=== PATIENT | female | born 1990 | race Caucasian/White ===

== ENCOUNTER 2018-05-18 09:32 | Outpatient (CLI) | payer OTHER ==
--- NOTE | 2018-05-18 11:23 | ULT ---
PELVIC ULTRASOUND: History: female. Evaluate age or with unsure last menstrual period. Technique: Multiplanar grayscale and color doppler images were obtained in a transabdominal and trans vaginal pelvic/ ultrasound. Spectral analysis of the doppler waveforms were performed. FINDINGS: There is a gestational sac within the uterus which contains a pole and yolk sac. [place]-rump alexia gth of the pole is 1.68 cm with estimated gestational age of 8 weeks 1 day. heart rate is 150 beats/minute. The left ovary cannot be seen. No free fluid is seen in the pelvis. The right ovary is normal in size and appearance and demonstrates normal internal flow. IMPRESSION: Single live intrauterine with estimated age of 8 weeks 1 day. POS: [facility]
== END 2018-05-18 09:33 | disposition home or self-care (01) ==
LOC: ULT 09:32
PROVIDERS: ATTEND Family Medicine
DX: Z33.1 Pregnant state, incidental (principal)
CPT/HCPCS: 76856

== ENCOUNTER 2018-06-29 18:26 | Emergency (ER) | payer OTHER ==
[2018-06-29 20:10] LABS: #Basophils 0.1 thou/uL (0.0-0.2); #Eosinphils 0.1 thou/uL (0.0-0.7); #Lymphocytes 2.5 thou/uL (1.20-3.40); #Monocytes 0.8 thou/uL (0.11-0.59); #Neutrophils 6.2 thou/uL (1.40-6.50); %Basophils 0.8 % (0.0-1.0); %Eosinophils 1.2 % (0.0-10.0); %Lymphocytes 25.7 % (21.0-51.0); %Monocytes 8.3 % (0.0-10.0); %Neutrophils 64.1 % (42.0-75.0); Hemoglobin 11.9 g/dL (12.0-16.0); Mean Corpuscular HGB CONC 34.1 g/dL (32.0-36.0); Mean Corpuscular Hemoglobin 29.8 pg (27.0-31.0); Mean Corpuscular Volume 87.5 fL (78.0-98.0); Mean Platelet Volume 7.4 fL (7.4-10.4); Platelet Count 309 thou/uL (130-400); RBC Distribution Width 11.9 % (11.5-14.5); White Blood Cell (WBC) Count 9.6 thou/uL (4.8-10.8)
--- NOTE | 2018-06-29 20:16 | ULT ---
OB ULTRASOUND: 06/29/18 HISTORY: Vaginal bleeding. FINDINGS: A single live intrauterine gestation is seen with measurements corresponding to an estimated gestatio nal age of 14 weeks, 4 days and OSCAR at 12/24/18. measurements are as follows: BPD 2.58 cm 14 weeks, 3 days HC 10.39 cm 14 weeks, 6 days AC 9.53 cm 15 weeks, 5 days FL 1.37 cm 14 weeks, 0 days heart rate measures 152 beats per minute. Placenta is anteriorly located without evidence of pl acenta previa. Amniotic fluid appears adequate. IMPRESSION: Single live IUP of 14 weeks, 4 days estimated gestational age and OSCAR at 12/24/18. POS: [facility]
[2018-06-29 20:38] LABS: ALT (SGPT) 18 U/L (8-55); AST (SGOT) 20 U/L (5-34); Alkaline Phosphatase 43 U/L (40-150); Anion Gap 11 mmol/L (10-20); BUN (Urea Nitrogen) 11 mg/dL (7.0-18.7); Bilirubin, Total 0.3 mg/dL (0.2-1.2); Calc. Creatinine Clearance 0 mL/min (70-130); Calcium 9.7 mg/dL (7.8-10.44); Carbon Dioxide 21 mmol/L (22-29); Chloride 107 mmol/L (98-107); Estimated GFR-MDRD Greater than 90; Globulin 3.1 g/dL (2.4-3.5); Glucose 83 mg/dL (70-105); Potassium 4.2 mmol/L (3.5-5.1); Protein, Total 7.1 g/dL (6.0-8.3); Sodium 135 mmol/L (136-145)
--- NOTE | 2018-06-30 01:22 | CON ---
DATE OF CONSULTATION: 06/29/2018 CONSULTING PHYSICIAN: Dr. Polk, emergency department. CHIEF COMPLAINT: Vaginal bleeding in early . HISTORY OF PRESENT ILLNESS: This is a 27-year-old, G2, P0, at approximately 14 weeks gestation, who presented to the emergency department with vaginal bleeding. She reports that she has been having spotting throughout the . However , the bleeding was little heavier today. She denies any pain associated with this bleeding, but was very nervous. REVIEW OF SYSTEMS: Negative for head, eyes, ears, nose, throat, cardiovascular, respiratory, GI, , neuro, psych, musculoskeletal, skin, or constitutional symptoms other than mentioned above. OB HISTORY: 1 prior early SAB PAST MEDICAL HISTORY: Anxiety. PAST SURGICAL HISTORY: None. MEDICATIONS: 1. Progesterone. 2. vitamin. 3. Promethazine. 4. Muscle relaxers. ALLERGIES: CELEXA. SOCIAL HISTORY: Negative for tobacco, alcohol, or drug abuse. FAMILY HISTORY: Negative for breast, ovary, uterine, or colon cancers. PHYSICAL EXAMINATION: VITAL SIGNS: Afebrile with normal vital signs. Mild tachycardia in the low 100s. GENERAL: Awake, alert, in no acute distress. CHEST: Nonlabored. ABDOMEN: Obese, soft, nontender to palpation. PELVIC: Normal-appearing external female genitalia. BUS normal. Vaginal mucosa is pink and moist, well rugated. Cervix appears nulliparous with an approximately 1 cm cervical polyp noted. Exam is limited due to body habitus. IMAGING: A formal ultrasound was done by Radiology, which revealed a single IUP at 14 weeks 4 days with 152 beats per minute and adequate appearing fluid, inferior cul-de-sac. LABORATORY DATA: Hemoglobin 11.9, hematocrit 35.0. Chemistry unremarkable. Blood type O+. ASSESSMENT AND PLAN: A 27-year-old, G2, P0, at 14+ weeks with a normal- appearing . Her bleeding is likely coming from a friable cervical polyp that was noted on exam. The patient was reassured and is stable for discharge home. She is to follow up with Dr. Pawan Flores as scheduled or before that if needed. Thank you very much for this consultation. Please let me know if I can be of any further assistance. Job ID: [id number] [facility]
== END 2018-06-29 22:25 | disposition home or self-care (01) ==
LOC: ERS 18:26
DX: O34.42 Maternal care for other abnormalities of cervix, second trimester (principal); N84.2 Polyp of vagina; O99.342 Other mental disorders complicating pregnancy, second trimester; F41.9 Anxiety disorder, unspecified; O99.332 Smoking (tobacco) complicating pregnancy, second trimester; Z3A.15 15 weeks gestation of pregnancy
CPT/HCPCS: 76805; 80053; 84702; 85025; 86900; 86901

== ENCOUNTER 2018-10-15 21:20 | Day surgery (SDC) | payer OTHER ==
[2018-10-15 22:22] LABS: Amnisure Test No Membranes Rupture (No Rupture)
--- NOTE | 2018-10-15 22:22 | PDOC.FPROB ---
FMR OB H&P: HPI - History of Present Illness Chief Complaint: decreased FM, LOF History of Present Illness: 28 yo @ 30.3 wks presents for absent FM x 24 hours. She notes placenta is anterior and she does not feel FM as often. Also reports clear fluid soaked on panties at 1700. Denies VB, VD, dysuria, headache, vision changes. Tolerating PO intake well. 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 - Family History Family History: Denies FMR OB H&P: Medications - Current Home Medications: Medication Instructions Recorded Confirmed Type Labetalol [Normodyne] 100 mg PO BID 10/15/18 10/15/18 History Allergies/Adverse Reactions: Allergies Allergy/AdvReac Type Severity Reaction Status Date / Time citalopram [From Celexa] Allergy Mild Verified 10/15/18 21:56 FMR OB H&P: ROS - Review of Systems Eyes: denies: vision changes Cardiovascular: denies: chest pain, palpitation Respiratory: denies: shortness of breath Gastrointestinal: denies: nausea, vomiting Genitourinary (Female): denies: dysuria, vaginal discharge, vaginal bleeding, contractions Neurologic: reports: numbness. denies: weakness FMR OB H&P: Vital Signs - Heart Tones Baseline: 145 Variability: moderate Acceleration: present Deceleration: absent [place] contractions every: none FMR OB H&P: Physical Exam - Physical Exam General: NAD, awake, alert and oriented HEENT: normocephalic and atraumatic, MMM Heart: RRR, normal S1/S2 General: CTAB, no respiratory distress Abdomen: soft, gravid, non-tender Skin: good tugor, capillary refill <2 seconds Lymphatic: no unusual bruising or bleeding Psychiatric: normal mood and affect FMR OB H&P: A/P - Problem List (1) Decreased movement during Current Visit: Yes Status: Acute Code(s): O36.8190 - DECREASED MOVEMENTS, UNSP TRIMESTER, UNSP (2) Fluid loss Current Visit: Yes Status: Acute Code(s): E86.9 - VOLUME DEPLETION, UNSPECIFIED Discussion: Date/Time: 10/15/18 2222 28 yo @ 30.3 wk presents for decreased FM and concern for LOF. Decreased FM - strip reassuring - BPP ordered, 10/28 LOF - amnisure negative Dispo: Patient given reassurance and discharged home considering negative amnisure and reassuring BPP/NST. Return precautions given. This H&P was discussed with Dr. Damico who agree with the above documentation and plan. Addendum - Attending - Attending Attestation Date/Time: 10/16/18 0204 I personally evaluated the patient and discussed the management with Dr. Eller. I agree with the History, Examination, Assessment and Plan documented above.
[2018-10-15 22:23] LABS: Amnisure Internal Control QC ACCEPTABLE (ACCEPTABLE)
[2018-10-16 04:49] VITALS: BP 132/78; TEMP 98.7; BMI 50.2
--- NOTE | 2018-10-16 08:59 | ULT ---
OBSTETRICAL ULTRASOUND FOR BIOPHYSICAL PROFILE: Date: 10/15/18 INDICATION: Decreased movement. FINDINGS: The fetus received 2/2 for tone, 2/2 for breathing, 2/2 or movement, and 2/2 for am niotic fluid volume, for a biophysical profile of 10/28. Fetus is in vertex position with an anterior placenta. HAFSA qualitatively also appears within normal l imits. HAFSA measures 17.1 cm. Gestational age based on biometrics is 32 weeks/6 days with estimated due date of 12/04/2018. T he clinical age is 30 week/3 days with estimated due date of 12/21/18. Cardiac activity is noted at 143 beats/minute. IMPRESSION: Biophysical profile of 10/28. POS: [facility]
== END 2018-10-15 23:55 | disposition home or self-care (01) ==
LOC: L&D/OP 21:20
PROVIDERS: ATTEND Obstetrics & Gynecology
DX: O36.8130 Decreased fetal movements, third trimester, not applicable or unspecified (principal); O13.3 Gestational [pregnancy-induced] hypertension without significant proteinuria, third trimester; O99.89 Other specified diseases and conditions complicating pregnancy, childbirth and the puerperium; N89.8 Other specified noninflammatory disorders of vagina; Z3A.30 30 weeks gestation of pregnancy; Z79.899 Other long term (current) drug therapy; Z88.8 Allergy status to other drugs, medicaments and biological substances
CPT/HCPCS: 76819; 84112; 99283

== ENCOUNTER 2018-10-25 14:57 | Day surgery (SDC) | payer OTHER ==
[2018-10-25 16:03] VITALS: BP 130/82; TEMP 99; BMI 54.7
[2018-10-25] MEDS ORDERED: hydrALAZINE 20 MG/ML VIAL SLOW IVP PRN (17:05)
--- NOTE | 2018-10-26 09:01 | PRG ---
DATE OF SERVICE: 10/25/2018 PRIMARY OB: Dr. Pawan Whitney. CHIEF COMPLAINT: Swelling. HISTORY OF PRESENT ILLNESS: The patient is a 28-year-old G2, P0 female with an intrauterine at 31 weeks and 6 days, who is presenting to Labor and Delivery after a day out and about, the patient reports that she was having a lot more swelling and was counseled by her OB's office to come for evaluation. The patient does have a past medical history significant for chronic hypertension and is on labetalol 100 mg twice a day. The patient reports blood pressures at home have been within normal limits. Again, she reports her swelling has gotten worse and that her wrists and hands have been hurting and she has numbness on the tips of her fingers on her right hand. In our conversation, the patient does admit that she does eat a lot of fast food and a lot of processed foods having a high salt diet. The patient denies any recent illness, fever, fall, headache, chest pain, shortness of breath, nausea, vomiting, or diarrhea. She does report at times problems with constipation. Denies any new rashes, hip problems, knee problems, muscle weakness, vaginal bleeding, leakage of fluid, or urinary urgency or frequency. PAST MEDICAL HISTORY: Obesity, anxiety, depression, likely chronic hypertension as the patient was started on blood pressure medicine early in this . SURGICAL HISTORY: Removal of a cervical polyp. SOCIAL HISTORY: Denies drug, alcohol, or tobacco use during the . She reports smoking and alcohol use prior to the . ALLERGIES: CELEXA. MEDICATIONS: 1. vitamins. 2. Labetalol 100 mg twice a day. OB LABORATORY DATA: Blood type is O positive. Antibody screen is not recorded. Hepatitis B surface antigen nonreactive. Diabetes screen is 96. HIV in the third trimester nonreactive. VDRL in the third trimester nonreactive. REVIEW OF SYSTEMS: Per HPI. PHYSICAL EXAMINATION: VITAL SIGNS: Blood pressure 124/76, heart rate of 96, saturating 100% on room air, respiratory rate 18, and temperature 98.7. The patient was monitored for about an hour and was noted to have normal-range blood pressures. She did have one 140/82 when she was making a clenched fist when I was present. GENERAL: She appears to be in no acute distress. She is morbidly obese, is alert, oriented, cooperative, pleasant to interact with. HEAD: Normocephalic and atraumatic. LUNGS: Clear to auscultation bilaterally. HEART: Has regular rate and rhythm. ABDOMEN: Gravid and soft. She does have some 1+ pitting edema in her lower extremities. heart tracing shows the fetus with a baseline in the 140s with moderate long-term variability, positive 15 x 15 accelerations, no decelerations. Tocometer showing no contractions. ASSESSMENT AND PLAN: The patient is a 28-year-old female with an intrauterine at 31 weeks and 6 days with a past medical history significant for chronic hypertension, on labetalol b.i.d. 100 mg, presenting with swelling. The patient's diet is a strong contributor to the increased swelling that she has been experiencing as she does admit to having a high salt intake. We did residential substance abuse counselor her to cut back on her salt intake by avoiding fast foods and adding salt to her diet and other processed foods. I have also prescribed her hydrochlorothiazide 25 mg to be taken daily for the next 5 days and asked her to check her blood pressures at home. She has an appointment to be seen by Dr. Whitney next Thursday. We have also counseled her to consider a carpal tunnel splint as this may help with some of her symptoms as she is trying to reduce some of the excess swelling that she has. Fetus has a category I tracing and reactive NST. The patient is being discharged to home. Job ID: [id number]
== END 2018-10-25 17:10 | disposition home or self-care (01) ==
LOC: L&D/OP 14:57
PROVIDERS: ATTEND Obstetrics & Gynecology
DX: O99.89 Other specified diseases and conditions complicating pregnancy, childbirth and the puerperium (principal); R22.33 Localized swelling, mass and lump, upper limb, bilateral; R20.0 Anesthesia of skin; O99.213 Obesity complicating pregnancy, third trimester; E66.01 Morbid (severe) obesity due to excess calories; O10.913 Unspecified pre-existing hypertension complicating pregnancy, third trimester; O99.343 Other mental disorders complicating pregnancy, third trimester; F41.9 Anxiety disorder, unspecified; F32.9 Major depressive disorder, single episode, unspecified; Z87.891 Personal history of nicotine dependence; Z88.8 Allergy status to other drugs, medicaments and biological substances; Z79.899 Other long term (current) drug therapy; Z3A.31 31 weeks gestation of pregnancy
CPT/HCPCS: 99282

== ENCOUNTER 2018-11-21 12:21 | Day surgery (SDC) | payer OTHER ==
[2018-11-21 13:10] VITALS: BP 143/72; TEMP 98.5; BMI 53.1
[2018-11-21] MEDS ORDERED: hydrALAZINE 20 MG/ML VIAL SLOW IVP PRN (14:10)
[2018-11-21 14:28] LABS: #Basophils 0.1 thou/uL (0.0-0.2); #Eosinphils 0.3 thou/uL (0.0-0.7); #Lymphocytes 2.4 thou/uL (1.20-3.40); #Monocytes 0.9 thou/uL (0.11-0.59); #Neutrophils 8.6 thou/uL (1.40-6.50); %Basophils 0.5 % (0.0-1.0); %Eosinophils 2.4 % (0.0-10.0); %Lymphocytes 19.2 % (21.0-51.0); %Monocytes 7.5 % (0.0-10.0); %Neutrophils 70.4 % (42.0-75.0); Hemoglobin 10.5 g/dL (12.0-16.0); Mean Corpuscular HGB CONC 34.8 g/dL (32.0-36.0); Mean Corpuscular Hemoglobin 30.1 pg (27.0-31.0); Mean Corpuscular Volume 86.4 fL (78.0-98.0); Mean Platelet Volume 7.5 fL (7.4-10.4); Platelet Count 264 thou/uL (130-400); RBC Distribution Width 12.7 % (11.5-14.5); White Blood Cell (WBC) Count 12.3 thou/uL (4.8-10.8)
--- NOTE | 2018-11-21 14:30 | PDOC.FPROB ---
FMR OB H&P: HPI - History of Present Illness Chief Complaint: Edema and elevated BP Indentification: 28yo at 35.5wks History of Present Illness: 28yo at 35.5wks presents for elevated BP and bilateral lower leg edema that started this morning. Has hx of gHTN treated with Labetalol BID. She checks her BP daily and reports it was 150's systolic this morning. Reports over the last day she has had new pitting edema. States she pressed down on her leg and the imprint lasted 1 min. Legs are also painful from the swelling. Denies VB, LOF, CTX. Reports some blurry vision this morning that only lasted a few minutes. Denies DAVISON, RUQ pain. Endorses FM. Primary Care Physician: Dr Luevano FMR OB H&P: Current - Care : 2 Para: 0010 Gestational age: 35.5wks Due date: 12/21/18 - OB Labs Blood type: O RH: positive HIV: negative RPR: negative 1 hour gtt: 96 FMR OB H&P: History - Past Medical History PMH: None - OB History OB History: spontaneous early in 1T Gestation HTN on labetalol - CHIEF PILOT History CHIEF PILOT History: Cervical polyp removed during this - Surgical History Sx History: None - Social History Social History: Denies tobacco, alcohol and drug use. - Family History Family History: DM in mother side FMR OB H&P: Medications - Current Home Medications: Medication Instructions Recorded Confirmed Type Labetalol [Normodyne] 100 mg PO BID 10/15/18 11/21/18 History Hydrochlorothiazide 25 mg PO DAILY #5 tab 10/25/18 11/21/18 Rx Vit,Calc76/Iron/Folic 1 tablet PO DAILY 10/25/18 11/21/18 History [Prenatabs Rx Tablet] Allergies/Adverse Reactions: Allergies Allergy/AdvReac Type Severity Reaction Status Date / Time citalopram [From Celexa] Allergy Mild Verified 11/21/18 13:03 FMR OB H&P: ROS - Review of Systems General: denies: fever/chills, fatigue Eyes: reports: vision changes. denies: double vision, scotomas, floaters ENT: denies: nasal congestion, sore throat Cardiovascular: denies: chest pain, palpitation Respiratory: denies: congestion, shortness of breath Gastrointestinal: denies: abdominal pain, nausea, vomiting, diarrhea, constipation Genitourinary (Female): denies: dysuria, vaginal bleeding, contractions Musculoskeletal: reports: swelling. denies: pain Neurologic: denies: headache Integumentary: denies: rash, lesions Psychological: reports: depression, anxiety FMR OB H&P: Vital Signs - Maternal Vital signs: Vital Signs - First Documented Temp Pulse Resp BP Pulse Ox 98.5 F 87 18 143/72 H 99 11/21/18 13:01 11/21/18 13:01 11/21/18 13:01 11/21/18 13:01 11/21/18 13:01 - Heart Tones Baseline: 140 Variability: moderate Acceleration: present Deceleration: absent Category: category 1 FMR OB H&P: Physical Exam - Physical Exam General: NAD, awake, alert and oriented HEENT: normocephalic and atraumatic, MMM, conjunctiva clear, grossly normal hearing, oropharynx clear Neck: supple, trachea midline Heart: RRR, no murmurs/rubs/gallops, other (Difficult to assess edema due to BMI. Does appear to be edema affecting b/l feet and ankles, nonpitting) General: CTAB, no respiratory distress Abdomen: soft, gravid, non-tender, bowel sound present Musculoskeletal: pulses present, FROM in all four extremities Skin: no rash, good tugor Lymphatic: no unusual bruising or bleeding Psychiatric: intact recent and remote memory, good judgement and insight, normal mood and affect - Pelvic Exam Vulva: normal hair distribution Membranes: Intact FMR OB H&P: Results - Labs Lab results: Laboratory Results - last 24 hr 11/21/18 14:20 WBC 12.3 H RBC 3.50 L Hgb 10.5 L Hct 30.2 L MCV 86.4 MCH 30.1 MCHC 34.8 RDW 12.7 Plt Count 264 MPV 7.5 Neutrophils % 70.4 Lymphocytes % 19.2 L Monocytes % 7.5 Eosinophils % 2.4 Basophils % 0.5 Neutrophils # 8.6 H Lymphocytes # 2.4 Monocytes # 0.9 H Eosinophils # 0.3 Basophils # 0.1 FMR OB H&P: A/P Disposition: 28yo at 35.5wks Gestational HTN, evaluate for preE - Office BPs as high as 158/99, most recently 138/86 - 24hr Urine protein on 11/08/18: 270 - BPs here 130's/70's - FHTs 140 Cat 1 - Compliant with Labetalol BID - Ordered CBC, CMP and Urine protein creatinine Krystal Sagastume MD PGY-2 Discussion: Date/Time: 11/21/18 1430 This H&P was discussed with Dr. Solitario who agrees with the above documentation and plan. Addendum - Attending - Attending Attestation Date/Time: 11/23/18 0931 I personally evaluated the patient and discussed the management with Dr. Sagastume I agree with the History, Examination, Assessment and Plan documented above with any addition or exceptions noted below. Pt is a 28yo w/ likely chtn stable on labetolol 100mg po bid. She has presented with elevated bp, swelling and leg pain. Pt denies h/a, sob, ruq tenderness, vision changes. vital have remained normal to mild range during her evaluation. labs are all wnl. no proteinuria. Pt was discharged home with precautions. Encouraged to reduce sodium intake and limit prepared and fast foods, and to consider support hose to assist with the swelling. PT to f/u with Dr Luevano as scheduled.
[2018-11-21 14:46] LABS: ALT (SGPT) 25 U/L (8-55); AST (SGOT) 22 U/L (5-34); Albumin 3.5 g/dL (3.5-5.0); Alkaline Phosphatase 98 U/L (40-150); Anion Gap 14 mmol/L (10-20); BUN (Urea Nitrogen) 11 mg/dL (7.0-18.7); Bilirubin, Total 0.2 mg/dL (0.2-1.2); Calc. Creatinine Clearance 319 mL/min (70-130); Calcium 10.5 mg/dL (7.8-10.44); Carbon Dioxide 19 mmol/L (22-29); Chloride 106 mmol/L (98-107); Estimated GFR-MDRD Greater than 90; Globulin 3.1 g/dL (2.4-3.5); Glucose 85 mg/dL (70-105); Potassium 3.9 mmol/L (3.5-5.1); Protein, Total 6.6 g/dL (6.0-8.3); Sodium 135 mmol/L (136-145)
[2018-11-21 15:14] LABS: Creatinine, Urine 68.89 mg/dL (47-110); Protein, Urine Random Quant Less than 10 mg/dL (1-14)
== END 2018-11-21 15:53 | disposition home health service (06) ==
LOC: L&D/OP 12:21
PROVIDERS: ATTEND Obstetrics & Gynecology
DX: O13.3 Gestational [pregnancy-induced] hypertension without significant proteinuria, third trimester (principal); Z3A.35 35 weeks gestation of pregnancy; Z79.899 Other long term (current) drug therapy; Z88.8 Allergy status to other drugs, medicaments and biological substances
CPT/HCPCS: 82570; 84156

== ENCOUNTER 2018-11-30 10:22 | Inpatient (IN) | payer OTHER ==
--- NOTE | 2018-11-21 13:42 | PDOC.FPROB ---
FMR OB H&P: Medications - Current Home Medications: Medication Instructions Recorded Confirmed Type Labetalol [Normodyne] 100 mg PO BID 10/15/18 11/21/18 History Hydrochlorothiazide 25 mg PO DAILY #5 tab 10/25/18 11/21/18 Rx Vit,Calc76/Iron/Folic 1 tablet PO DAILY 10/25/18 11/21/18 History [Prenatabs Rx Tablet] Allergies/Adverse Reactions: Allergies Allergy/AdvReac Type Severity Reaction Status Date / Time citalopram [From Celexa] Allergy Mild Verified 11/21/18 13:03 FMR OB H&P: A/P Discussion: Date/Time: 11/21/18 1342 This H&P was discussed with [] and [] who agree with the above documentation and plan.
[~2018-11-30 10:22] MED LIST: hydrALAZINE 20 MG/ML VIAL SLOW IVP PRN
[2018-11-30 23:49] VITALS: BMI 54.6
[2018-12-01] MEDS: Lactated Ringer's 1,000 ML IV SCH ×2 (00:20→07:08)
[2018-12-01] MEDS ORDERED: NS / Oxytocin 40 units/1000ml 1,000 ML IV PRN (00:30)
[2018-12-01] MEDS ORDERED: Misoprostol 200 MCG TAB PR PRN (00:30)
[2018-12-01] MEDS ORDERED: NS w/ Oxytocin 10 units 500 ML IV SCH (00:30)
[2018-12-01] MEDS ORDERED: Diphenoxylate HCl/Atropine Tablet PO PRN ×2 (00:30)
[2018-12-01] MEDS ORDERED: Carboprost 250 MCG/ML AMP IM PRN (00:30)
[2018-12-01] MEDS ORDERED: Ondansetron PF 4 MG/2 ML Vial IVP PRN ×2 (00:30→21:55)
[2018-12-01] MEDS ORDERED: Ibuprofen 800 MG TAB PO PRN (00:30)
[2018-12-01] MEDS ORDERED: hydrALAZINE 20 MG/ML VIAL SLOW IVP PRN (00:30)
[2018-12-01] MEDS ORDERED: Acetaminophen 500 MG TAB PO PRN (00:30)
[2018-12-01] MEDS ORDERED: Promethazine HCl 25 MG/ML VIAL IM PRN ×2 (00:30→21:55)
[2018-12-01] MEDS ORDERED: Lidocaine 1% (PF) 30 ML VIAL SC PRN (00:30)
[2018-12-01] MEDS ORDERED: HYDROcodone/Acetaminophen 5/325 mg Tablet PO PRN ×2 (00:30)
[2018-12-01] MEDS ORDERED: Butorphanol Tartrate 1 MG/ML VIAL SLOW IVP PRN (00:30)
--- NOTE | 2018-12-01 00:36 | PDOC.LDHP ---
Labor and Delivery H&P HPI: 28 y/o at 37 and 1/7 weeks presents for Medical Induction - CHTN requiring medication, Morbid Obesity. Current gestational age (weeks): 37 Due date: 12/21/18 Grav: 2 Para: 0 Current complications: hypertension Abnormal US findings: No Current medications: pre- vitamins Previous surgical history: other Allergies/Adverse Reactions: Allergies Allergy/AdvReac Type Severity Reaction Status Date / Time citalopram [From Celexa] Allergy Mild Verified 11/21/18 13:03 - Physical Exam Vital signs reviewed and normal: yes General: NAD, resting Heart: RRR Lungs: CTAB Abdomen: gravid Extremeties: no edema FHT: category 1 - Assessment L&D Assessment: medically indicated induction - Plan Plan: admit to L&D, cervical ripening
[2018-12-01 00:50] LABS: Hemoglobin 11.1 g/dL (12.0-16.0); Mean Corpuscular HGB CONC 34.4 g/dL (32.0-36.0); Mean Corpuscular Hemoglobin 30.1 pg (27.0-31.0); Mean Corpuscular Volume 87.6 fL (78.0-98.0); Mean Platelet Volume 7.6 fL (7.4-10.4); Platelet Count 280 thou/uL (130-400); RBC Distribution Width 12.9 % (11.5-14.5); Red Blood Cell (RBC) Count 3.67 mill/uL (4.20-5.40); White Blood Cell (WBC) Count 12.9 thou/uL (4.8-10.8)
[2018-12-01] MEDS ORDERED: Penicillin G Potassium 5 MILL.UNITS in Sodium Chloride 0.9% 100 ML IVPB SCH (01:00)
[2018-12-01 01:34] LABS: HBSAg Index 0.16 S/CO (0-0.99); Hep B Surf Ag Non-Reactive S/CO (NonReactive); Syphilis Antibody Nonreactive (Nonreactive); Syphilis Antibody Index 0.03 S/CO (<1.00 Non-Reactive)
[2018-12-01] MEDS: Misoprostol 100 MCG TAB VAG SCH ×4 (01:40→12:33)
[2018-12-01] MEDS: NS w/ Oxytocin 10 units 500 ML IV SCH (04:50)
[2018-12-01] MEDS: Penicillin G 2.5 MILL.units 2.5 MILL.UNITS in Premix Bag 1 BAG IVPB SCH ×4 (07:08→20:51)
[2018-12-01] MEDS ORDERED: Fentanyl 4 mcg/Bup 0.1% Cadd 100 ML ONE (19:36)
[2018-12-01] MEDS ORDERED: Lactated Ringer's 500 ML IV PRN (21:55)
[2018-12-01] MEDS ORDERED: diphenhydrAMINE 50 MG/ML VIAL IVP PRN (21:55)
[2018-12-01] MEDS ORDERED: Acetaminophen 325 MG TAB PO PRN (21:55)
[2018-12-01] MEDS ORDERED: ePHEDrine/0.9% NaCl/PF SYRINGE 50 mg/10 ml SLOW IVP PRN (21:55)
[2018-12-01] MEDS ORDERED: Naloxone HCl 0.4 mg/ml Vial IVP PRN ×2 (21:55)
[2018-12-01] MEDS ORDERED: Fentanyl 4 mcg/Bupivacaine 0.1% Cassette 100 ML EPIDURAL SCH (22:00)
[2018-12-01] MEDS ORDERED: Communication Order-Pharmacy FS SCH (22:00)
[2018-12-02] MEDS: Penicillin G 2.5 MILL.units 2.5 MILL.UNITS in Premix Bag 1 BAG IVPB SCH ×2 (00:33→10:47)
[2018-12-02] MEDS ORDERED: Diphenoxylate HCl/Atropine Tablet PO PRN ×2 (01:05→01:06)
[2018-12-02] MEDS ORDERED: HYDROcodone/Acetaminophen 5/325 mg Tablet PO PRN ×3 (01:06→10:02)
[2018-12-02] MEDS ORDERED: Hydrocerin (Eucerin) Cream 120 gm Jar TOP PRN (01:07)
[2018-12-02] MEDS ORDERED: Fentanyl 4 mcg/Bup 0.1% Cadd 100 ML ONE (01:19)
[2018-12-02] MEDS ORDERED: Carboprost 250 MCG/ML AMP ONE ×2 (02:51→03:33)
[2018-12-02] MEDS ORDERED: Tranexamic Acid 1,000 MG/10 ML VIAL ONE ×2 (02:53→03:33)
[2018-12-02 03:42] LABS: Mean Corpuscular HGB CONC 34.1 g/dL (32.0-36.0); Mean Corpuscular Volume 87.9 fL (78.0-98.0); Mean Platelet Volume 7.5 fL (7.4-10.4); Platelet Count 279 thou/uL (130-400); RBC Distribution Width 12.9 % (11.5-14.5); Red Blood Cell (RBC) Count 3.33 mill/uL (4.20-5.40); White Blood Cell (WBC) Count 21.2 thou/uL (4.8-10.8)
[2018-12-02] MEDS ORDERED: CEFAZOLIN 2 GM in Premix Bag 1 BAG IVPB SCH (03:45)
[2018-12-02] MEDS ORDERED: CEFAZOLIN 1 GM VIAL SLOW IVP SCH (03:45)
[2018-12-02 03:52] LABS: PTT 27.3 SEC (22.9-36.1); Prothrombin Time 13.2 SEC (12.0-14.7)
[2018-12-02 04:00] LABS: Band 3 % (5-11); Hypochromia SLIGHT = 6-15 cells (100X) (0-5/hpf); Lymphocytes 3 % (21-51); MDiff Complete? YES; Monocytes 4 % (0-10); Neutrophil 90 % (42-75); Platelet Morphology Comment Appears Adequate
[2018-12-02] MEDS ORDERED: Preparation H Ointment 28 GM TUBE PR PRN (10:02)
[2018-12-02] MEDS ORDERED: Promethazine HCl 25 MG/ML VIAL IM PRN (10:02)
[2018-12-02] MEDS ORDERED: Ondansetron PF 4 MG/2 ML Vial IVP PRN (10:02)
[2018-12-02] MEDS ORDERED: Benzocaine-Menthol 82.5 ML CAN TOP PRN (10:02)
[2018-12-02] MEDS ORDERED: Milk Of Magnesia 30 ML UDCUP PO PRN (10:02)
[2018-12-02] MEDS ORDERED: Measles/Mumps/Rubella 10 MCG/0.5 ML VIAL SC ONE (10:02)
[2018-12-02] MEDS ORDERED: NS / Oxytocin 40 units/1000ml 1,000 ML IV SCH (10:02)
[2018-12-02] MEDS ORDERED: Varicella virus, LIVE 0.5 ML VIAL SC ONE (10:02)
[2018-12-02] MEDS ORDERED: Lanolin Ointment 7 GM TUBE TOP PRN (10:02)
[2018-12-02] MEDS ORDERED: Bisacodyl 10 MG SUPP PR PRN (10:02)
[2018-12-02] MEDS ORDERED: hydrALAZINE 20 MG/ML VIAL SLOW IVP PRN (10:02)
[2018-12-02] MEDS ORDERED: diphenhydrAMINE 25 MG CAP PO PRN (10:02)
[2018-12-02] MEDS ORDERED: Zolpidem Tartrate 5 MG TAB PO PRN (10:02)
[2018-12-02] MEDS ORDERED: Adacel (T-DAP) 0.5 ML SYRINGE IM ONE (10:02)
[2018-12-02] MEDS: Misoprostol 100 MCG TAB VAG SCH ×2 (10:45→10:46)
[2018-12-02] MEDS: NS w/ Oxytocin 10 units 500 ML IV SCH (10:46)
[2018-12-02] MEDS: Lactated Ringer's 1,000 ML IV SCH (10:46)
[2018-12-02] MEDS ORDERED: Ibuprofen 800 MG TAB PO SCH (14:00)
[2018-12-02] MEDS: Ferrous Sulfate 325 MG TAB PO SCH (15:46)
[2018-12-02] MEDS: Ibuprofen 800 MG TAB PO SCH (18:31)
[2018-12-02] MEDS: HYDROcodone/Acetaminophen 5/325 mg Tablet PO PRN (18:32)
--- NOTE | 2018-12-02 19:55 | PDOC.PP ---
Post Progress Note Post Day #: 1 PO intake tolerated: yes Flatus: yes Ambulation: yes Vital Signs (12 hours) Temp Pulse Resp BP Pulse Ox 12/02/18 15:10 98.8 F 100 12 116/66 96 12/02/18 10:30 98.4 F 97 18 124/65 99 Weight Weight 370 lb - Physical Examination General: NAD Cardiovascular: no m/r/g, RRR Respiratory: clear to auscultation bilaterally, non-labored breathing Abdominal: + bowel sounds, lochia, no distention Extremities: negative homans (B) Neurological: no gross focal deficits Psychiatric: A&Ox3, normal affect Result Diagrams: 12/02/18 03:32 Additional Labs: Post Labs Blood Type O POSITIVE 12/01/18 00:35 Hep Bs Antigen Non-Reactive S/CO (NonReactive) 12/01/18 00:35
[2018-12-02] MEDS: Docusate Calcium (SURFAK) 240 MG CAP PO SCH (21:31)
[2018-12-03] MEDS: HYDROcodone/Acetaminophen 5/325 mg Tablet PO PRN ×4 (00:34→23:34)
[2018-12-03] MEDS: Ibuprofen 800 MG TAB PO SCH ×3 (00:35→17:11)
[2018-12-03 06:04] LABS: Hemoglobin 8.1 g/dL (12.0-16.0); Mean Corpuscular Hemoglobin 30.1 pg (27.0-31.0); Mean Corpuscular Volume 88.6 fL (78.0-98.0); Mean Platelet Volume 7.2 fL (7.4-10.4); Platelet Count 202 thou/uL (130-400); Red Blood Cell (RBC) Count 2.69 mill/uL (4.20-5.40); White Blood Cell (WBC) Count 10.5 thou/uL (4.8-10.8)
[2018-12-03] MEDS: Docusate Calcium (SURFAK) 240 MG CAP PO SCH ×2 (10:16→20:57)
[2018-12-03] MEDS: Ferrous Sulfate 325 MG TAB PO SCH ×2 (10:16→17:11)
--- NOTE | 2018-12-03 14:47 | PDOC.PP ---
Post Progress Note Post Day #: 1 PO intake tolerated: yes Flatus: yes Ambulation: yes Vital Signs (12 hours) Temp Pulse Resp BP Pulse Ox 12/03/18 07:20 98.4 F 87 16 105/56 L 96 12/03/18 04:00 98.0 F 92 20 125/64 Weight Weight 370 lb - Physical Examination General: NAD Cardiovascular: no m/r/g, RRR Respiratory: clear to auscultation bilaterally, non-labored breathing Abdominal: + bowel sounds, lochia Extremities: negative homans (B) Neurological: no gross focal deficits Psychiatric: A&Ox3, normal affect Result Diagrams: 12/03/18 05:54 Additional Labs: Post Labs Blood Type O POSITIVE 12/01/18 00:35 Hep Bs Antigen Non-Reactive S/CO (NonReactive) 12/01/18 00:35
--- NOTE | 2018-12-04 02:12 | DN ---
DATE OF PROCEDURE: 12/02/2018 TIME OF SERVICE: At 0219, [place] Daylight Savings Time. PREOPERATIVE DIAGNOSES: Intrauterine at 37 weeks and 2 days with high-risk for chronic hypertension as well as morbid obesity with a BMI of 51 for the mother. The patient also has a history of uterine polyps one of which was excised after daily bleeding during in a separate surgery. POSTOPERATIVE DIAGNOSES: Intrauterine at 37 weeks and 2 days with high-risk for chronic hypertension as well as morbid obesity with a BMI of 51 for the mother. The patient also has a history of uterine polyps one of which was excised after daily bleeding during in a separate surgery. PROCEDURE PERFORMED: Spontaneous vaginal delivery over a second-degree laceration of the perineum along with hemorrhage encountered. FINDINGS: Viable female infant weighing 3166 g or 7 pounds 0 ounces. Apgars 8 and 9. QUANTITATIVE BLOOD LOSS: 2087 mL. COMPLICATIONS: Postoperative hemorrhage. DETAILS OF PROCEDURE: Ms. Hill was admitted to [facility] for induction of labor for her high-risk complicated by chronic hypertension requiring medications as well as morbid obesity of 51, BMI. The patient underwent Cytotec induction followed by Pitocin. Membranes ruptured spontaneously during labor. She delivered quite precipitously at the end with doctor present in the room. The baby delivered in a vertex presentation, occiput anterior. Once out, the umbilical cord was quickly clamped and cut and baby handed off the field. Delivery of the placenta was rather uneventful, although the patient did have notable bleeding before placenta even delivered. This was in part due to a vaginal laceration at the 6 o'clock position, which was somewhat difficult to reach and assess until placenta delivery was accomplished. Once the placenta was out, a suture repair began of the laceration of the perineum. It became quite clear the patient was having higher than average bleeding. We began resuscitative measures, giving medical agents to include Pitocin 40 units in a L of fluids as well as 800 mcg of Cytotec per rectum. She received a total of 2 doses of Hemabate 250 mcg intramuscularly as well as tranexamic acid 1 g slow push over 10 minutes given 2 doses. We also typed and crossed the patient and started the 2nd IV. The patient did receive 2 units of packed red blood cells during the recovery. The agents did start to work relatively quickly once given and after the repair of the perineum was complete, bleeding quickly subsided although a total blood loss of approximately 2 L was encountered during that initial time. The patient was monitored on Labor and Delivery overnight. CBC and coags were ordered immediately in the room before transfusion was begun. In the morning, the patient was transferred to the floor in stable condition at that time. Job ID: [id number]
[2018-12-04] MEDS: Ibuprofen 800 MG TAB PO SCH ×2 (03:29→09:35)
--- NOTE | 2018-12-04 07:47 | PDOC.OBPPN ---
FMR OB PN: Subj - Interval History Hospital Day: 4 Day: 2 Chief Complaint: LE edema Indentification: Interval History: Patient did well overnight. FMR OB PN: Obj - Maternal Vital signs: BP: 143/73 HR: 84 RR: 18 Tmax: 98.6F Pox: 95% on RA Wt: 167 kg - Urine output I&O: 12/03/18 12/04/18 12/05/18 06:59 06:59 06:59 Output Total 92 32 Balance -92 -32 - Lochia Lochia: minimal bloody lochia noted on exam - Pain Management Pain scale: 1 Intervention: oral medication FMR OB PN: Exam - Physical Exam General: NAD, awake, alert and oriented HEENT: normocephalic and atraumatic, MMM, conjunctiva clear, grossly normal vision, grossly normal hearing Neck: supple, FROM Heart: RRR, normal S1/S2, no murmurs/rubs/gallops, other (non-pitting edema in B /L LEs) General: CTAB, no respiratory distress, good air movement, no rales/rhonchi, no wheezing, no retractions Abdomen: soft, fundus(cm) (firm), non-tender Musculoskeletal: normal gait and station, FROM in all four extremities Neurological: cranial nerves II through XII intact, sensation to pain,touch and proprioception grossly normal, no focal deficit Skin: no rash, good tugor : incision healing well, no erythema, no edema, no drainage, appropriately tender Lymphatic: no unusual bruising or bleeding, no purpura Psychiatric: intact recent and remote memory, good judgement and insight, normal mood and affect - Pelvic Exam : perineal incision/laceration healing well, sutures intact, no discharge, no edema, normal lochia FMR OB PN: A/P - Problem List (1) Anemia Current Visit: Yes Status: Acute Code(s): D64.9 - ANEMIA, UNSPECIFIED (2) care following vaginal delivery Current Visit: Yes Status: Acute Code(s): Z39.2 - ENCOUNTER FOR ROUTINE FOLLOW-UP (3) HTN (hypertension) Current Visit: Yes Status: Acute Code(s): I10 - ESSENTIAL (PRIMARY) HYPERTENSION Qualifiers: Hypertension type: essential hypertension Qualified Code(s): I10 - Essential (primary) hypertension Disposition: 28YO G2 now P0011 who is day #2 s/p a medically indicated IOL at 37 and 1/7 weeks due to cHTN requiring medication & Morbid Obesity. 1. day #2 s/p : Voiding normally and passing flatus. No BM yet. Pain well-controlled on PO meds. Ambulating and tolerating PO well. 2. Second degree vaginal laceration s/p repair: Sutures intact w/ no edema, erythema or discharge noted on exam. 3. Acute blood loss anemia: Patient's Hgb down to 8.1 yesterday morning and 2 units of pRBCs were ordered. Will continue PNVs & PO iron upon d/c. 4. cHTN: Will continue PO meds taken prior to PRN following discharge. Encourage weight loss & DASH diet. 5. Morbid obesity: Encourage lifestyle changes. Dispo: Patient discharged at 0800 this AM by PCP. Will f/u for routine PP visit within 2-4 weeks. Discussion: Date/Time: 12/04/18 0746 This H&P was discussed with [] and [] who agree with the above documentation and plan. Addendum - Attending - Attending Attestation Date/Time: 12/04/18 69 I personally evaluated the patient and discussed the management with Dr. reddy I agree with the History, Examination, Assessment and Plan documented above with any addition or exceptions noted below.
[2018-12-04 08:52] VITALS: BP 121/62; TEMP 98.2
[2018-12-04] MEDS: Docusate Calcium (SURFAK) 240 MG CAP PO SCH (09:35)
[2018-12-04] MEDS: Ferrous Sulfate 325 MG TAB PO SCH (09:35)
== END 2018-12-04 14:30 | disposition home or self-care (01) | DRG 806 ==
LOC: L&D 22:06 → 3SW 12-02 10:36 → EDSTATUS 01-19 10:21
PROVIDERS: ADMIT Obstetrics & Gynecology; ATTEND Obstetrics & Gynecology
PROC: 10E0XZZ Delivery of Products of Conception, External Approach (ICD-10-PCS; principal; 2018-12-03)
PROC: 0KQM0ZZ Repair Perineum Muscle, Open Approach (ICD-10-PCS; 2018-12-03)
PROC: 3E033VJ Introduction of Other Hormone into Peripheral Vein, Percutaneous Approach (ICD-10-PCS; 2018-12-03)
DX: O10.92 Unspecified pre-existing hypertension complicating childbirth (principal); D62 Acute posthemorrhagic anemia; Z37.0 Single live birth; O99.214 Obesity complicating childbirth; E66.01 Morbid (severe) obesity due to excess calories; O70.1 Second degree perineal laceration during delivery; O99.02 Anemia complicating childbirth; Z3A.37 37 weeks gestation of pregnancy
CPT/HCPCS: 36415; 36430; 51702; 85025; 85027; 85610; 85730; 86780; 86850; 86900; 86901; 87340; 90715; J0595; J0690; J2001; J2405; J2540; J2590; J3490; P9016

== ENCOUNTER 2018-12-05 21:40 | Inpatient (IN) | payer OTHER ==
[~2018-12-05 21:40] MED LIST changes: +ISOVUE-370 76%-LOCM 1 ML ONE; -hydrALAZINE 20 MG/ML VIAL SLOW IVP PRN
--- NOTE | 2018-12-05 22:14 | RAD ---
XR Chest 1 View Portable HISTORY: Chest pain COMPARISON: None FINDINGS: Heart size within normal limits for portable technique. Mediastinal structures appear unrem arkable. The lungs are clear of infiltrates. No significant bony findings. IMPRESSION: No active intrathoracic disease.
[2018-12-05 22:16] LABS: #Eosinphils 0.4 thou/uL (0.0-0.7); #Lymphocytes 2.3 thou/uL (1.20-3.40); #Monocytes 0.6 thou/uL (0.11-0.59); #Neutrophils 5.5 thou/uL (1.40-6.50); %Basophils 0.5 % (0.0-1.0); %Eosinophils 4.5 % (0.0-10.0); %Monocytes 6.5 % (0.0-10.0); %Neutrophils 62.5 % (42.0-75.0); Mean Corpuscular HGB CONC 33.9 g/dL (32.0-36.0); Mean Corpuscular Hemoglobin 30.1 pg (27.0-31.0); Mean Corpuscular Volume 88.6 fL (78.0-98.0); Mean Platelet Volume 7.3 fL (7.4-10.4); Platelet Count 276 thou/uL (130-400); Red Blood Cell (RBC) Count 2.65 mill/uL (4.20-5.40); White Blood Cell (WBC) Count 8.8 thou/uL (4.8-10.8)
[2018-12-05 22:37] LABS: ALT (SGPT) 25 U/L (8-55); AST (SGOT) 24 U/L (5-34); Albumin 3.4 g/dL (3.5-5.0); Alkaline Phosphatase 73 U/L (40-150); Anion Gap 12 mmol/L (10-20); BUN (Urea Nitrogen) 11 mg/dL (7.0-18.7); Bilirubin, Total 0.3 mg/dL (0.2-1.2); CK (CPK) 345 U/L (29-168); Calc. Creatinine Clearance 0 mL/min (70-130); Calcium 8.6 mg/dL (7.8-10.44); Carbon Dioxide 23 mmol/L (22-29); Chloride 107 mmol/L (98-107); Estimated GFR-MDRD 90; Globulin 2.2 g/dL (2.4-3.5); Glucose 83 mg/dL (70-105); Lipase 11 U/L (8-78); Potassium 3.7 mmol/L (3.5-5.1); Protein, Total 5.6 g/dL (6.0-8.3); Sodium 138 mmol/L (136-145)
--- NOTE | 2018-12-05 23:46 | CT ---
CT angiogram of chest performed with intravenous contrast enhancement with 3-D reconstructions HISTORY: Chest pain. No shortness of breath. COMPARISON: None. FINDINGS: The lungs are clear of any infiltrative process. No pleural effusions or pulmonary nodules. Small hiatal hernia is noted. There is no significant mediastinal or hilar adenopathy. The thoracic aorta is normal in caliber without signs of dissection. There is suboptimal pulmonary ar alec opacification. Peripheral emboli are not excluded. No CT evidence of a central embolus. Visualized liver parenchyma shows no focal findings. IMPRESSION: Limited examination but no CT evidence for any central pulmonary embolus.
[2018-12-05] MEDS ORDERED: Metoclopramide HCl 10 MG/2 ML VIAL ONE (23:59)
[2018-12-05] MEDS ORDERED: Morphine 4 MG/ML VIAL ONE (23:59)
[2018-12-05] MEDS ORDERED: Magnesium 2 GM/50 ML BAG (IN WATER) ONE (23:59)
[2018-12-06] MEDS ORDERED: hydrALAZINE 20 MG/ML VIAL ONE
[2018-12-06] MEDS ORDERED: Zolpidem Tartrate 5 MG TAB PO PRN (00:13)
[2018-12-06] MEDS ORDERED: Ondansetron PF 4 MG/2 ML Vial IVP PRN (00:13)
[2018-12-06] MEDS ORDERED: Ondansetron ODT 4 MG TAB PO PRN (00:13)
[2018-12-06] MEDS ORDERED: Calcium Gluconate 4.6 MEQ in Sodium Chloride 0.9% 100 ML IVPB PRN (00:13)
[2018-12-06 00:46] LABS: Bacteria/HPF None Seen HPF (None Seen); Bilirubin Negative (Negative); Blood, Urine 1+ (Negative); Clarity Clear (Clear); Glucose, Urine (Dipstick) Normal (Negative); Leukocyte Negative Leu/uL (Negative); Nitrite Negative (Negative); Protein, Urine (Dipstick) Negative (Neg-Trace); Squamous Epithelial 0-3 HPF (0-3); Urobilinogen Normal mg/dL (Less than 2); WBC/HPF 0-3 HPF (0-3)
[2018-12-06] MEDS: Magnesium Sulfate 20 gm/500 ml 20 GM/500 ML BAG IVPB SCH ×3 (01:36→22:24)
[2018-12-06 01:48] LABS: Troponin I Less than 0.010 ng/mL (< 0.028)
[2018-12-06 02:02] VITALS: BMI 54.6
[2018-12-06] MEDS: Acetaminophen 500 MG TAB PO PRN ×3 (02:40→17:20)
--- NOTE | 2018-12-06 07:34 | PDOC.LDHP ---
Labor and Delivery H&P Chief complaint: other HPI: 28 y/o PPD#3 s/p who presented to the ED with chest pain 06/30. She has also had a headache but assumed it was due to lack of sleep with a . Denies abdominal pain, heavy vaginal bleeding or other concerns. ROS neg for HEENT, CV, pulm, GI, , neuro, psych, skin, musculoskeletal, or constitutional symptoms other than mentioned above. OB History Details: 1 on 12/03 1 SAB Current complications: hypertension Past Medical History: Morbid obesity CHTN Anxiety Current medications: pre-althea vitamins, other (ibuprofen) Previous surgical history: other (cervical polyp removed this ) Allergies/Adverse Reactions: Allergies Allergy/AdvReac Type Severity Reaction Status Date / Time citalopram [From Celexa] Allergy Mild Verified 11/21/18 13:03 Social history: none - Physical Exam Abnormal vital signs: mostly mild range BPs with occ severe range General: NAD, resting Lungs: nonlabored breathing Abdomen: gravid Extremeties: no edema - Assessment 28 y/o PPD#3 with severe range BPs in ED. Previous admission reviewed, was not on any PO antihypertensive meds during previous admission. Chest pain and headache improved. - Plan -: Admit for MgSO4 Was reportedly on Labetalol previously. Will restart. Dr. Whitney notified.
[2018-12-06] MEDS: Labetalol 100 MG TAB PO SCH ×2 (12:00→21:10)
[2018-12-06] MEDS: hydrALAZINE 20 MG/ML VIAL SLOW IVP PRN ×2 (15:10→17:13)
[2018-12-06] MEDS ORDERED: ALPRAZolam 0.25 MG TAB PO SCH (17:45)
--- NOTE | 2018-12-06 18:11 | PDOC.EVN ---
Event Note - Event Note Event Note: 28 y/o PPD#4 s/p with who presented to the ED initially this morning with chest pain 06/30. She has also had a headache but assumed it was due to lack of sleep with a . She Denies abdominal pain, heavy vaginal bleeding or other concerns. Patient also had a hemorrhage requiring 2 units of pRBCs last week. Hb remains stable. Patient is now on Magnesium sulfate at 2g/hr. She is receiving hydralazine intermittently. Labetolol 100mg po q12 hours restarted this morning. Patient seems to have extreme anxiety over being back in the hospital and away from her baby. Discussed anxiety with department chief, and we have decided to try Xanax prn. PE GEN - pt is teary, but alert and answers all questions appropriately Abdom - Obese, Non tender CV - RRR RESP - CTA B/L Extrem - no C/C/E Skin - WNL Assessment 1. PPD #4 2. Preeclampsia 3. Stable hemorrhage requiring recent 2u pRBC to be given 4. Severe Range Blood Pressures Plan 1. Continue Magnesium Sulfate x 24 hours (up at 0130 on 12/07/18) 2. Labetolol 100mg BID 3. Xanax for anxiety PRN 4. Clear Liquids 5. We will attempt to transition patient to po meds after magnesium and titrate labetolol as needed.
[2018-12-06] MEDS ORDERED: hydrALAZINE 20 MG/ML VIAL SLOW IVP SCH (20:30)
[2018-12-06] MEDS: Famotidine 20 MG TAB PO SCH (21:07)
[2018-12-07] MEDS: Acetaminophen 500 MG TAB PO PRN ×4 (00:44→19:58)
[2018-12-07] MEDS: hydrALAZINE 20 MG/ML VIAL SLOW IVP PRN ×2 (05:53→06:17)
[2018-12-07] MEDS: Lactated Ringer's 1,000 ML IV SCH ×2 (05:57→19:32)
[2018-12-07] MEDS: ALPRAZolam 0.25 MG TAB PO SCH ×4 (06:26→20:16)
[2018-12-07] MEDS: Labetalol 100 MG TAB PO SCH ×2 (07:42→19:54)
[2018-12-07] MEDS ORDERED: Lanolin Ointment 7 GM TUBE TOP PRN (08:10)
[2018-12-07] MEDS: Famotidine 20 MG TAB PO SCH ×3 (13:14→20:16)
[2018-12-08] MEDS: Acetaminophen 500 MG TAB PO PRN (05:12)
[2018-12-08] MEDS: Labetalol 100 MG TAB PO SCH ×2 (10:03→20:54)
[2018-12-08] MEDS: Famotidine 20 MG TAB PO SCH ×2 (10:04→21:16)
[2018-12-08] MEDS: ALPRAZolam 0.25 MG TAB PO SCH ×4 (10:11→21:16)
[2018-12-08] MEDS ORDERED: Furosemide 20 MG TAB PO SCH (12:00)
[2018-12-08] MEDS: Furosemide 40 MG TAB PO SCH ×2 (18:13→23:55)
--- NOTE | 2018-12-08 19:38 | PDOC.EVN ---
Event Note - Event Note Event Note: 28 y/o s/p with who presented to the ED initially post- with severe pre-eclampsia. Patient is now s/p Magnesium sulfateand has been transitioned to Labetolol 200mg po q12 hours. PE GEN - pt is teary, but alert and answers all questions appropriately Abdom - Obese, Non tender CV - RRR RESP - CTA B/L Extrem - no C/C, Bilateral Pedal Edema noted in both legs, somewhat worse than her usual baseline 3rd trimester. Skin - WNL Assessment 1. Severe Preeclampsia 2. Severe lower extremity Edema 3. Stable hemorrhage requiring recent 2u pRBC to be given 4. Severe Range Blood Pressures now non-severe on Labetalol 200mg po BID 5. Morbid Obesity Plan 1. DC tomorrow planned 2. Labetolol 200mg BID 3. Lasix 40mg q6hrs 4. Regular Diet
--- NOTE | 2018-12-08 19:41 | PDOC.EVN ---
Event Note - Event Note Event Note: 28 y/o s/p with who presented to the ED initially with severe pre-eclampsia. Patient is now s/p Magnesium sulfate and has been transitioned to Labetalol 200mg po q12 hours. PE GEN - pt is teary, but alert and answers all questions appropriately Abdom - Obese, Non tender CV - RRR RESP - CTA B/L Extrem - no C/C, Bilateral Pedal Edema noted in both legs, somewhat worse than her usual baseline 3rd trimester. Skin - WNL Assessment 1. Severe Preeclampsia improving 2. Severe lower extremity Edema 3. Stable hemorrhage requiring recent 2u pRBC to be given 4. Severe Range Blood Pressures now non-severe on Labetalol 200mg po BID 5. Morbid Obesity Plan 1. Labetolol to be titrated 2. Regular Diet
[2018-12-09] MEDS: Furosemide 40 MG TAB PO SCH ×2 (05:54→12:15)
[2018-12-09] MEDS: Labetalol 100 MG TAB PO SCH (09:00)
[2018-12-09] MEDS: Acetaminophen 500 MG TAB PO PRN (09:46)
--- NOTE | 2018-12-09 09:54 | DIS ---
DATE OF ADMISSION: 12/06/2018 DATE OF DISCHARGE: 12/09/2018 ANTICIPATED DATE OF DISCHARGE: 12/09/2018. ADMISSION DIAGNOSIS: severe preeclampsia. DISCHARGE DIAGNOSIS: Resolving severe preeclampsia. CONSULTATIONS: None. DETAILS OF THE ADMISSION: Ms. Hill was initially evaluated by the [facility] Emergency Room as well as the labor and delivery hospitalist, Teri Oliva. She was admitted for severe preeclampsia at that time, was started on magnesium sulfate, which she continued for 24 hours. Following magnesium, she was transitioned to labetalol, which was titrated and eventually left at 200 mg b.i.d. orally, which the patient tolerated well. Her blood pressures were only mildly elevated on that dose. The patient continued to struggle with some fairly severe lower extremity edema, which was symmetric bilaterally. This was a problem at the end of , but somewhat worse after the patient had been on bedrest during her time in the hospital. The patient tried THOM hose in the hospital as well as Lasix to improve her symptoms and this will be continued p.r.n. upon discharge. The patient will be leaving the hospital with a prescription for labetalol 200 mg p.o. every 12 hours as well as a prescription for Lasix 40 mg q.6 hours p.r.n. Follow up as scheduled in 1-2 weeks in the office with myself. Job ID: [id number]
[2018-12-09] MEDS: Famotidine 20 MG TAB PO SCH (10:15)
[2018-12-09] MEDS: ALPRAZolam 0.25 MG TAB PO SCH (10:15)
[2018-12-09 11:56] VITALS: BP 110/56; TEMP 98.3
--- NOTE | 2018-12-11 12:00 | EKG ---
Test Reason : ER Blood Pressure : / mmHG Vent. Rate : 086 BPM Atrial Rate : 086 BPM P-R Int : 182 ms QRS Dur : 068 ms QT Int : 358 ms P-R-T Axes : 040 070 034 degrees QTc Int : 428 ms Normal sinus rhythm Normal ECG Confirmed by CRIS GARCIA, SHOBHA ([id number]), medical transcription editor RONALD BECK ([id number]) on 12/11/2018 11:59:45 AM Referred By: Confirmed By:SHOBHA LYNCH MD
== END 2018-12-09 12:49 | disposition home or self-care (01) | DRG 776 ==
LOC: ERS 21:40 → L&D 12-06 00:05 → 3SE 12-07 12:39
PROVIDERS: ADMIT Obstetrics & Gynecology; ATTEND Obstetrics & Gynecology
DX: O11.5 Pre-existing hypertension with pre-eclampsia, complicating the puerperium (principal); O99.345 Other mental disorders complicating the puerperium; F41.9 Anxiety disorder, unspecified; O99.215 Obesity complicating the puerperium; E66.01 Morbid (severe) obesity due to excess calories
CPT/HCPCS: 36415; 51701; 51702; 71045; 71275; 80053; 81003; 81015; 82550; 82570; 83690; 83735; 83880; 84156; 84484; 85025; 85379; 93005; 96365; 96375; A4353; J0360; J2270; J2765; J3475; Q9966